=== PATIENT | female | born 2000 | race Caucasian/White ===

== ENCOUNTER 2018-10-22 14:22 | Inpatient (IN) | payer BC ==
[~2018-10-22] VITALS: Ht 152.4 cm; Wt 48.1 kg
[2018-10-22 14:22] VITALS: BP_SYST 120
--- NOTE | 2018-10-22 14:22 | NUR ---
BROUGHT BACK TO BED #1 VIA WHEELCHAIR, PLACED IN BED #1 AND TRIAGED. REPORT GIVEN TO ADRIÁN
--- NOTE | 2018-10-22 14:35 | NUR ---
LJ MOURA examining patient.
--- NOTE | 2018-10-22 14:38 | NUR ---
PATIENT CAME IN COMPLAINING OF VOMITING FOR ABOUT A WEEK NOW. PATIENT WENT TO PCP AND TOLD THEM TO COME TO ER. PATIENT STATES SHE CANT KEEP ANY FOOD OR LIQUIDS DOWN AND HASNT REALLY ATE IN A WEEK. PATIENT COMPLAINING OF UPPER ABD PAIN /10. PATIENT STATES SHE FEELS WEAK AND LIKE SHE IS ABOUT TO FAINT. PATIENT IS NOT COMPLAINING OF DIARRHEA OR SOB. PATIENT ALERT AND ORIENTED X4.
[2018-10-22] MEDS ORDERED: NACL 0.9% 1,000 ML IV ONE ×2 (14:39→15:45)
[2018-10-22] MEDS ORDERED: ONDANSETRON HCL 4 MG/2 ML VIAL IVP ONE (14:45)
[2018-10-22] MEDS ORDERED: KETOROLAC TROMETHAMINE 30 MG VIAL IVP ONE (14:45)
--- NOTE | 2018-10-22 15:05 | NUR ---
PATIENT GETTING ULTRA SOUND IN BED.
[2018-10-22 15:08] LABS: BASOPHILS # (AUTO) 0.1 K/uL (0.0-0.2); BASOPHILS % (AUTO) 0.3 % (0.0-2.0); EOSINOPHILS % (AUTO) 0.2 % (0.0-4.0); HEMATOCRIT 52.9 % (36-48); HEMOGLOBIN 18.6 g/dL (12.0-16.0); LYMPHOCYTES # (AUTO) 2.5 K/uL (1.0-5.5); LYMPHOCYTES % (AUTO) 12.4 % (20.5-51.5); MEAN CORPUSCULAR HEMOGLOBIN 30 pg (27-31); MEAN CORPUSCULAR HGB CONC 35 % (32-36); MEAN CORPUSCULAR VOLUME 84 fL (79.0-98.0); MONOCYTES # (AUTO) 1.8 K/uL (0.0-1.0); MONOCYTES % (AUTO) 8.9 % (1.7-9.3); NEUTROPHILS # (AUTO) 15.8 K/uL (1.8-7.7); PLATELET COUNT (AUTO) 382 K/uL (130-430); RED BLOOD CELL COUNT(AUTO) 6.29 MIL/uL (4.2-6.2); RED CELL DISTRIBUTION WIDTH 13.5 % (9.0-15.0); WHITE BLOOD COUNT (AUTO) 20.2 K/uL (4.5-11.0)
[2018-10-22 15:26] LABS: CALCIUM 10.2 mg/dL (8.4-11.0); CREATININE 0.81 mg/dL (0.55-1.30)
[2018-10-22 15:31] LABS: ALBUMIN 4.5 g/dL (3.4-4.8); TOTAL BILIRUBIN 2.3 mg/dL (0.0-1.0)
[2018-10-22 15:34] LABS: POTASSIUM 2.6 mmol/L (3.5-5.1)
--- NOTE | 2018-10-22 15:37 | NUR ---
PATIENT ASKED IF SHE CAN URINATE NOW FOR US SINCE SHE WASNT ABLE TO EARLIER. PATIENT STATED SHE HASNT URINATED IN COUPLE OF DAYS. POWDER CORE TESTER MARTELL AWARE.
[2018-10-22 15:39] LABS: NEUTROPHILS % (AUTO) 78.2 % (40.0-70.0)
[2018-10-22] MEDS ORDERED: cefTRIAXone 1 GM in D5W 50 ML IV ONE (15:45)
[2018-10-22] MEDS ORDERED: cefTRIAXone 1 GM VIAL ONE (16:11)
[2018-10-22 16:32] LABS: BILIRUBIN,URINE 1+ (NEGATIVE); CLARITY/URINE SL CLOUDY (CLEAR); COLOR,URINE YELLOW (YELLOW); GLUCOSE,URINE NEGATIVE (NEGATIVE); KETONES,URINE 3+ (NEGATIVE); LEUKOCYTE ESTERASE ,URINE NEGATIVE (NEGATIVE); NITRITE, URINE NEGATIVE (NEGATIVE); PROTEIN URINE 2+ (NEGATIVE)
[2018-10-22 16:45] LABS: BLOOD, URINE TRACE (NEGATIVE)
[2018-10-22 16:46] LABS: BACTERIA,URINE MODERATE /HPF (None Seen); FINE GRANULAR CASTS,URINE 0-10 /LPF (None Seen); MUCUS,URINE 3+ /LPF (None Seen); RBC,URINE 0-3 /HPF (0-3); URINE AMORPHOUS URATE 2+ /HPF (None Seen)
--- NOTE | 2018-10-22 16:48 | NUR ---
Medication reconciliation completed with information provided by patient. Any prior medication reconciliation on file was reviewed and corrected.
--- NOTE | 2018-10-22 17:28 | NUR ---
Patient will be admitted to care of DR WYLIE. Admitted to MED SURGE unit. Will go to room 109C. Belongings list completed. Summary report printed. Report will be given at bedside.
--- NOTE | 2018-10-22 18:10 | NUR ---
PATIENT LEFT TO ULTRA SOUND VIA WHEEL CHAIR IN STABLE CONDITION.
--- NOTE | 2018-10-22 18:25 | NUR ---
WAITING FOR DR TO CALL BACK WITH ORDERS. DR'S GOING BACK AND FORTH WITH WHO SHOULD ADMIT HER.
--- NOTE | 2018-10-22 18:58 | NUR ---
PATIENT BACK FROM [facility] IN STABLE CONDITION.
--- NOTE | 2018-10-22 19:16 | NUR ---
ENDORSED CARE TO MEET FONSECA.
--- NOTE | 2018-10-22 19:18 | NUR ---
Recieved report from Eulogio DSOUZA for continuation of care. Patient observed sitting in bed in no acute distress. Mother present bedside. Awaiting admission orders at this time.
[2018-10-22] MEDS ORDERED: ONDANSETRON HCL 4 MG/2 ML VIAL IVP PRN (20:00)
--- NOTE | 2018-10-22 20:00 | NUR ---
Patient will be admitted to care of Dr. Yeager. Admitted to telemetry unit. Will go to room 109C. Belongings list completed. Summary report printed. Report will be given at bedside.
[2018-10-22] MEDS: KCL 40mEq in D5/0.45NS 1000 mL 1,000 ML IV SCH (20:12)
--- NOTE | 2018-10-22 20:19 | NUR ---
Transfer to telemetry via ACLS protocol. Licensed nurse present. IV present no signs or symptoms of infiltration.
--- NOTE | 2018-10-22 20:23 | NUR ---
ADMISSION NOTE Received patient from ER via gurney. Patient admitted with diagnosis of Hyperemesis Gravidarum. Patient is awake, alert, oriented X 4. Patient oriented to hospital room, call light, toileting, pain management and safety-teach back done. Patient informed that MEET Arias will be primary nurse and that their room number is 109C. Personal belongings checked and Belongings List documented. Call light within reach.
[2018-10-22 20:35] VITALS: BP_SYST 117
--- NOTE | 2018-10-22 21:08 | NUR ---
PATIENT RESTING COMFORTABLY IN BED, AAOX4. PROVIDED WITH JELLO, CRANBERRY JUICE, AND WATER PER PATIENT REQUEST. PATIENT STATED THAT SHE HASN'T HAD ANYTHING TO EAT FOR DINNER. MOTHER AND FATHER ARE AT THE BEDSIDE. BED IS LOCKED, IN THE LOWEST POSITION, 2X SIDE RAILS UP. PATIENT REFUSES BED ALARM AT THIS TIME. CALL LIGHT IS WITHIN REACH. ENCOURAGED PATIENT TO CALL FOR ASSISTANCE. WILL CONTINUE WITH PLAN OF CARE.
--- NOTE | 2018-10-22 23:30 | NUR ---
Patient is resting comfortably in bed, eyes closed. Breathing even and unlabored with visible chest rise and fall noted. No SOB, no acute distress, no signs of pain or facial grimacing noted. IV site intact, dressing clean and dry, infusing IVF per MD order, see eMAR. Bed is locked, in the lowest position, 2x side rails up, bed alarm is on. Call light is within reach.
--- NOTE | 2018-10-22 23:33 | NUR ---
Consultation Paged Reason for Consultation: Hyperemesis Gravidarum Was consult called: Y Person who was notified: [place] Consulting Physician: Dr. Kwan Application Developer Ordering Physician: Jacob Downey
[2018-10-23] VITALS (7 sets, daily range): BP systolic 104–128
--- NOTE | 2018-10-23 01:40 | NUR ---
Patient resting in bed, eyes closed. No SOB, no acute distress. Visible chest rise and fall noted. No signs of pain or facial grimacing. Call light within reach.
[2018-10-23] MEDS: KCL 40mEq in D5/0.45NS 1000 mL 1,000 ML IV SCH ×3 (02:25→22:28)
--- NOTE | 2018-10-23 02:29 | NUR ---
Patient complaining of nausea. provided patient with zofran PRN per MD order, see eMAR for details.
[2018-10-23] MEDS ORDERED: KCL 40mEq in D5/0.45NS 1000 mL 1,000 ML IV ONE (02:32)
--- NOTE | 2018-10-23 02:55 | NUR ---
Patient resting in bed, easily arousable to voice. Breathing even, unlabored with visible chest rise and fall noted. No SOB, no acute distress. no complaints of pain. Call light within reach. encouraged patient to call for assistance.
--- NOTE | 2018-10-23 04:26 | NUR ---
PATIENT RESTING IN BED, EYES CLOSED. BREATHING EVEN AND UNLABORED. NO SOB, NO ACUTE DISTRESS, NO SIGNS OF PAIN OR FACIAL GRIMACING. VISIBLE CHEST RISE AND FALL NOTED. CALL LIGHT WITHIN REACH. IVF INFUSING AT ORDERED RATE, SEE EMAR FOR DETAILS.
[2018-10-23 05:49] LABS: BASOPHILS % (AUTO) 0.2 % (0.0-2.0); EOSINOPHILS # (AUTO) 0.2 K/uL (0.0-0.4); EOSINOPHILS % (AUTO) 1.6 % (0.0-4.0); HEMATOCRIT 36.9 % (36-48); HEMOGLOBIN 12.9 g/dL (12.0-16.0); LYMPHOCYTES # (AUTO) 3.1 K/uL (1.0-5.5); LYMPHOCYTES % (AUTO) 23.1 % (20.5-51.5); MEAN CORPUSCULAR HEMOGLOBIN 29 pg (27-31); MEAN CORPUSCULAR HGB CONC 35 % (32-36); MEAN CORPUSCULAR VOLUME 84 fL (79.0-98.0); MONOCYTES # (AUTO) 1.2 K/uL (0.0-1.0); MONOCYTES % (AUTO) 9.2 % (1.7-9.3); NEUTROPHILS # (AUTO) 8.8 K/uL (1.8-7.7); NEUTROPHILS % (AUTO) 65.9 % (40.0-70.0); PLATELET COUNT (AUTO) 231 K/uL (130-430); RED BLOOD CELL COUNT(AUTO) 4.38 MIL/uL (4.2-6.2); RED CELL DISTRIBUTION WIDTH 13.4 % (9.0-15.0); WHITE BLOOD COUNT (AUTO) 13.3 K/uL (4.5-11.0)
--- NOTE | 2018-10-23 06:29 | NUR ---
PATIENT RESTING IN BED, EYES CLOSED. BREATHING EVEN AND UNLABORED, VISIBLE CHEST RISE AND FALL NOTED. NO SOB, NO ACUTE DISTRESS, NO COMPLAINTS OF PAIN AT THIS TIME. BED IS LOCKED, IN THE LOWEST POSITION, 2X SIDE RAILS UP, BED ALARM IS ON. IV SITE INTACT, DRESSING CLEAN AND DRY, CURRENTLY INFUSING IVF PER MD ORDER, SEE EMAR. CALL LIGHT IS WITHIN REACH. ENCOURAGED PATIENT TO CALL FOR ASSISTANCE. FALL AND SAFETY PRECAUTIONS MAINTAINED. ALL NEEDS HAVE BEEN MET DURING THIS SHIFT. WILL ENDORSE CARE TO ONCOMING DAYSHIFT NURSE.
[2018-10-23 07:12] LABS: ALBUMIN 2.8 g/dL (3.4-4.8); CALCIUM 8.2 mg/dL (8.4-11.0); CREATININE 0.54 mg/dL (0.55-1.30); POTASSIUM 3.1 mmol/L (3.5-5.1); TOTAL BILIRUBIN 1.5 mg/dL (0.0-1.0)
--- NOTE | 2018-10-23 07:15 | NUR ---
received report at the bedside. patient aaox 4. still sleepy no nausea nor vomitting noted. lungs bilaterally clear. abdomen soft and non distended. bed in low position. call lights within reach. instructed to call for assistance. will continue to monitor patients status. on sinus rthythm 80. no ectopy noted. has iv acces on both rt ac and left ac with iv fluids on Dr1/2Ns w/40kcl at 100cc/hr infusing on well.
--- NOTE | 2018-10-23 09:00 | NUR ---
no due medication at this time.
--- NOTE | 2018-10-23 09:30 | NUR ---
patient stable. no complained of nausea nor vomitting noted.
--- NOTE | 2018-10-23 11:48 | NUR ---
SS NOTE: STUNT DRIVER met with pt at bedside for assessment and DCP. STUNT DRIVER verified and corrected demographic information (2nd emergency contact, Graciela Bryan @ [phone] and PCP: Dr. 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 Pt states she found out in the emergency room that she is between 5-8 weeks from an ultrasound performed in the ED. Pt stated she was "scared to tell mom" about the result and had one of the ED nurse tell the pt's mother instead. Pt states she and her family are concern about the baby. Apparently, she was notified that heart activity of the baby is undetectable, but OB is yet to give her a definitive answer if any. At this time, pt finds her family as supportive and concern of her current situation. Pt was tearful during the interview and concern about the baby. Pt states that her boyfriend (baby's father) is involved and supportive. SS will provide pt with resource prior to d/c and will continue to remain available when needed. Addendum: 10/23/18 at 1631 by Janiya LOCO STUNT DRIVER provided pt with WIC and Assistance resources.
--- NOTE | 2018-10-23 12:30 | NUR ---
tolerating clear liquid diet. assists on adls.
--- NOTE | 2018-10-23 12:54 | NUR ---
hanged a new iv bag D51/2NS + 40 Kcl at 100cc/hr infusing on well.
--- NOTE | 2018-10-23 14:00 | NUR ---
patient asleep. both eyes closed. no sob nor pain noted.
--- NOTE | 2018-10-23 15:00 | NUR ---
discontinue tele to med surgical.
--- NOTE | 2018-10-23 15:56 | NUR ---
mom is at the bedside. resting and watching the tv. no complained made so far.
[2018-10-23] MEDS ORDERED: FAMOTIDINE PF 20 MG/2 ML VIAL IVP ONE (16:00)
--- NOTE | 2018-10-23 16:57 | NUR ---
dad came and wants some update of the status of her daughter.
--- NOTE | 2018-10-23 17:55 | NUR ---
watching tv. resting. no abdominal pain noted.
--- NOTE | 2018-10-23 19:15 | NUR ---
change of shift.pt.present general stable status.family present.iv fluids infusing.no c/o pain,nausea. pt.had requested to shower to page the md.call light/telephone w/in the reach of the pt.
--- NOTE | 2018-10-23 19:19 | NUR ---
endorsed to incoming nurse Haim DSOUZA
--- NOTE | 2018-10-23 20:00 | NUR ---
pt.assessed.v/s assessed;values w/in normal limits.no c/o pain,nausea.i have apprised the pt.that snacks/beverages are available w/in the shift.general status stable.respiratory status stable.call light/telephone w/in the reach of the pt.
--- NOTE | 2018-10-23 20:30 | NUR ---
pt.assisted to the shower.mother has accompanied the pt.inside the room.i have provide the toiletries;soap,lotion;skin,gown, wash clothes;socks.
--- NOTE | 2018-10-23 21:00 | NUR ---
2100p medication administered:pepcid;ivp.i have provided the medication indication of the medication;pt./family. pt.had requested snacks/beverages;i have proved the snacks/beverages. Addendum: 10/24/18 at 0302 by Haim Hamilton RN pt.had return to the room safely.mother accompanied pt from the shower jocy to the bed.
[2018-10-23] MEDS: FAMOTIDINE PF 20 MG/2 ML VIAL IVP SCH (21:06)
--- NOTE | 2018-10-23 22:00 | NUR ---
pt.assessed.pt.presents quiescent affect;calm,viewing tv programming.no c/o pain,nausea.i have changed the iv fluids bag. no requests posted@this hour.general status stable.respiratory status stable.call light/telephone w/in the reach of the pt.family have left the hospital.
--- NOTE | 2018-10-24 | NUR ---
pt.assessed.v/s assessed;values w/in normal, limits.no c./o pain,nausea.no requested posited @this hour. iv fluids access intact;patent;iv fluids infusing.general status stable.respiratory status stable.call light/ telephone w/in thew reach of the pt.
--- NOTE | 2018-10-24 02:00 | NUR ---
pt.assessed.pt.presents quiescent affect;calm,somnolent.iv acces intac;patent.iv fluids infusing.general status stable.respiratory statu stable;unlabored.pt.capable t reposition self.call light/telephone w/in the reach of the pt.
--- NOTE | 2018-10-24 04:00 | NUR ---
pt.assessed.pt.presents quiescent affect;calm somnolent.iv fluids infusing.general status stable.respiratory status stable. pt.capable to reposition self.call light/telephone w/in the reach of the pt.
[2018-10-24 05:57] LABS: BASOPHILS % (AUTO) 0.5 % (0.0-2.0); EOSINOPHILS # (AUTO) 0.3 K/uL (0.0-0.4); EOSINOPHILS % (AUTO) 2.7 % (0.0-4.0); HEMATOCRIT 35.8 % (36-48); HEMOGLOBIN 12.2 g/dL (12.0-16.0); LYMPHOCYTES # (AUTO) 2.3 K/uL (1.0-5.5); LYMPHOCYTES % (AUTO) 22.4 % (20.5-51.5); MEAN CORPUSCULAR HEMOGLOBIN 29 pg (27-31); MEAN CORPUSCULAR HGB CONC 34 % (32-36); MONOCYTES # (AUTO) 0.8 K/uL (0.0-1.0); MONOCYTES % (AUTO) 7.5 % (1.7-9.3); NEUTROPHILS % (AUTO) 66.9 % (40.0-70.0); PLATELET COUNT (AUTO) 186 K/uL (130-430); RED BLOOD CELL COUNT(AUTO) 4.15 MIL/uL (4.2-6.2); RED CELL DISTRIBUTION WIDTH 13.5 % (9.0-15.0); WHITE BLOOD COUNT (AUTO) 10.4 K/uL (4.5-11.0)
--- NOTE | 2018-10-24 06:31 | NUR ---
pt.assessed.,pt.presents quiescent affect;calm,somnolent.iv fluids infusing,general status stable. respiratory status stable.pt.capable to reposition self.call light/telephone w/in the reach of the pt. no family member present.
[2018-10-24 06:46] LABS: ALBUMIN 2.6 g/dL (3.4-4.8); CALCIUM 8.3 mg/dL (8.4-11.0); CREATININE 0.62 mg/dL (0.55-1.30); POTASSIUM 3.8 mmol/L (3.5-5.1); TOTAL BILIRUBIN 0.5 mg/dL (0.0-1.0)
--- NOTE | 2018-10-24 07:15 | NUR ---
received patient in stable condition. no pain nor acute distress noted. has iv access on the left ac #22 with D51/2 NS + 40mew Kcl at 100cc/hr infusing on well. lungs are clear bilaterally. abdomen soft and non distended. bed in low position, locked and alarmed. instructed to call for assistance.
[2018-10-24 07:18] LABS: MEAN CORPUSCULAR VOLUME 86 fL (79.0-98.0)
[2018-10-24] MEDS: ONDANSETRON HCL 4 MG/2 ML VIAL IVP PRN (07:24)
[2018-10-24 08:01] VITALS: BP_SYST 108
--- NOTE | 2018-10-24 09:00 | NUR ---
a new iv bag hanged at this time. made comfortable.
--- NOTE | 2018-10-24 09:05 | NUR ---
PATIENT DUE MEDICATION GIVEN AT THIS TIME.
[2018-10-24] MEDS: FAMOTIDINE PF 20 MG/2 ML VIAL IVP SCH ×2 (09:09→20:49)
[2018-10-24] MEDS: KCL 40mEq in D5/0.45NS 1000 mL 1,000 ML IV SCH ×2 (09:10→20:49)
--- NOTE | 2018-10-24 09:15 | NUR ---
QUITE AND RESTING BUT STILL EATING FOOD LITTLE BY LITTLE. NO NAUSEA NOR VOMITTING NOTED.
--- NOTE | 2018-10-24 10:50 | NUR ---
WENT TO THE BATHROOM AND VOIDED.
[2018-10-24 11:39] VITALS: BP_SYST 108
--- NOTE | 2018-10-24 12:20 | NUR ---
eating lunch at this time and little by little on the food tray
--- NOTE | 2018-10-24 12:55 | NUR ---
patricio operations vice president came to see and education given to the patient.
--- NOTE | 2018-10-24 13:18 | NUR ---
Dietitian Recommendations * Recommend continuing regular, soft diet LP, RD Please refer to Nutrition Assessment for details.
--- NOTE | 2018-10-24 14:43 | NUR ---
asleep at this time. stable. no pain nor nausea nor acute distress noted.
--- NOTE | 2018-10-24 14:57 | NUR ---
dr osullivan called regarding the status of the patient. said will come to possible d/c home today.
[2018-10-24 15:31] VITALS: BP_SYST 118
--- NOTE | 2018-10-24 16:32 | NUR ---
Dr Toy James came and evaluate the patient.he wants to talked to Dr Ezekiel geller md.
--- NOTE | 2018-10-24 16:51 | NUR ---
Dr Falcon called but Dr Preston fuel conversion technician. awaiting to call back.
--- NOTE | 2018-10-24 18:05 | NUR ---
dr Preston called back for Dr Falcon. said its okay, if Dr osullivan wants the patient to stay one more nite.
--- NOTE | 2018-10-24 18:13 | NUR ---
informed the family and the patient that she needs to stay for one more nite. dr osullivan ordered to have ultrasound of abdomen. lipid panel and hold discharge tonite.
--- NOTE | 2018-10-24 19:05 | NUR ---
OPENING NOTES RECEIVED PATIENT IN BED FAMILY AT BEDSIDE. BREATHING UNLABORED ON ROOM AIR. DENIES PAIN AT THIS TIME. IVF INFUSING ORDERED. BED IN LOWEST LOCKED POSITION. CALL LIGHT WITH IN REACH.
--- NOTE | 2018-10-24 19:10 | NUR ---
endorsed to incoming nurse Eveline DSOUZA.
--- NOTE | 2018-10-24 20:30 | NUR ---
SHOWER PATIENT HAD SHOWERED AND TOLERATED. ALL BED LINENS CHANGED.
[2018-10-24 20:43] VITALS: BP_SYST 118
--- NOTE | 2018-10-24 20:49 | NUR ---
MEDS PATIENT DUE MEDICATION GIVEN. IVF INFUSING WITH IV LINE INTACT.
--- NOTE | 2018-10-24 23:55 | NUR ---
MD DR. GOMEZ CALLED AND GAVE ORDERS FOR LABS IN AM. NOTED AND CARRIED OUT.
[2018-10-25 00:13] VITALS: BP_SYST 113
--- NOTE | 2018-10-25 00:35 | NUR ---
ROUNDS PATIENT AWAKE IN BED. NO C/O ANY DISCOMFORT AT THIS TIME. VITAL SIGNS STABLE. PATIENT REMINDED OF BEING NPO FOR ABDOMINAL ULTRASOUND PATIENT AGREED.
--- NOTE | 2018-10-25 03:00 | NUR ---
ROUNDS PATIENT RESTING IN BED. NO DISTRESS NOTED. IVF INFUSING.
[2018-10-25] MEDS: KCL 40mEq in D5/0.45NS 1000 mL 1,000 ML IV SCH (06:17)
[2018-10-25 06:26] LABS: BASOPHILS % (AUTO) 0.3 % (0.0-2.0); EOSINOPHILS # (AUTO) 0.1 K/uL (0.0-0.4); EOSINOPHILS % (AUTO) 1.6 % (0.0-4.0); HEMATOCRIT 36.6 % (36-48); HEMOGLOBIN 12.3 g/dL (12.0-16.0); LYMPHOCYTES # (AUTO) 1.7 K/uL (1.0-5.5); LYMPHOCYTES % (AUTO) 24.1 % (20.5-51.5); MEAN CORPUSCULAR HEMOGLOBIN 29 pg (27-31); MEAN CORPUSCULAR HGB CONC 34 % (32-36); MEAN CORPUSCULAR VOLUME 87 fL (79.0-98.0); MONOCYTES # (AUTO) 0.6 K/uL (0.0-1.0); MONOCYTES % (AUTO) 8.5 % (1.7-9.3); NEUTROPHILS # (AUTO) 4.6 K/uL (1.8-7.7); NEUTROPHILS % (AUTO) 65.5 % (40.0-70.0); PLATELET COUNT (AUTO) 167 K/uL (130-430); RED BLOOD CELL COUNT(AUTO) 4.22 MIL/uL (4.2-6.2); RED CELL DISTRIBUTION WIDTH 13.4 % (9.0-15.0)
--- NOTE | 2018-10-25 06:32 | NUR ---
CLOSING NOTES PATIENT RESTING IN BED. BREATHING UNLABORED. IVF INFUSING ORDERED. NO C/O OF PAIN OR NAUSEA AT THIS TIME. PATIENT NEEDS ATTENDED. BED IN LOWEST LOCKED POSITION. CALL LIGHT WITH IN REACH.
[2018-10-25 06:42] LABS: ALBUMIN 2.7 g/dL (3.4-4.8); CALCIUM 8.8 mg/dL (8.4-11.0); CREATININE 0.51 mg/dL (0.55-1.30); TOTAL BILIRUBIN 0.4 mg/dL (0.0-1.0)
[2018-10-25 07:45] VITALS: BP_SYST 109
--- NOTE | 2018-10-25 07:45 | NUR ---
INITIAL ROUNDS Received pt AAOx4, no s/s resp distress, no c/o pain or discomfort, no c/o nausea or vomiting at this time. Plan of care for the day reviewed with pt-pt verbalized her understanding. IVF infusing well to LAC at ordered rate with no s/s infiltration to site. Pt CHAIRMAN & CHIEF EXECUTIVE OFFICER for test this morning. Pain management, skin and safety discussed-teach back done. Call light within reach.
[2018-10-25] MEDS: FAMOTIDINE PF 20 MG/2 ML VIAL IVP SCH (08:52)
[2018-10-25] MEDS: ONDANSETRON HCL 4 MG/2 ML VIAL IVP PRN (08:56)
--- NOTE | 2018-10-25 08:58 | NUR ---
NAUSEA Pt c/o feeling nauseated-pt given Zofran as ordered. Light turned down low and door closed to promote rest.
--- NOTE | 2018-10-25 10:02 | NUR ---
ROUNDS Pt with no further c/o nausea, no c/o pain or discomfort. Pt remains NPO-awaiting Abd US. Needs met, call light within reach.
--- NOTE | 2018-10-25 11:27 | NUR ---
Neighborhood Aide: PRINTING SPECIALIST met with pt. bedside. Pt. was pleasant and easily participated in this interview. Pt. stated she was feeling much better and will probably be discharged today. Pt. denied having any issue with Anorexia. Pt. stated she still doesn't know if there is a hearbeat. It was explained to her that it may be too early to detect a heartbeat. Pt stated she was probably not going to keep the baby. She stated she [facility] information and resources about an . PRINTING SPECIALIST gave pt. resources for [facility] as options. Pt. did not have any further questions. PRINTING SPECIALIST will remain available as needed.
[2018-10-25 12:16] VITALS: BP_SYST 106
[2018-10-25 13:26] VITALS: BP_SYST 108
[2018-10-25 15:02] VITALS: BP_SYST 108
--- NOTE | 2018-10-25 18:07 | NUR ---
KALLIE TO AL HOME [facility] kallie to D/C home per Dr. [id number] with GI clinic in 4 weeks.
--- NOTE | 2018-10-25 19:45 | NUR ---
PATIENT DISCHARGED Patient and patient's father given medication reconciliation form and D/C instructions. Exit Care provided explained and provided. Patient & patient's father verbalized their understanding. MD discussed with patient the results and treatment provided. Ambulatory with steady gait for discharge to home. Patient in stable condition, ID band removed. IV catheter removed, intact and dressing applied, no active bleeding. Patient educated on pain management. All belongings sent with patient.Patient left floor ambulatory to private vehicle in no distress.
[2018-10-25 21:06] LABS: CHLAMYDIA TRACHOMATIS NAA Negative (Negative); NEISSERIA GONORRHOEAE NAA Negative (Negative)
== END 2018-10-25 19:45 | disposition home or self-care (01) | DRG 831 ==
LOC: SED 14:22 → SMU 17:23 → STU 20:42 → SMU 21:14 → STU 21:36 → SMU 10-23 13:39
PROVIDERS: ADMIT Internal Medicine Hospice and Palliative Medicine; ATTEND Obstetrics & Gynecology
DX: O21.1 Hyperemesis gravidarum with metabolic disturbance (principal); K85.90 Acute pancreatitis without necrosis or infection, unspecified; O23.41 Unspecified infection of urinary tract in pregnancy, first trimester; A09 Infectious gastroenteritis and colitis, unspecified; O26.891 Other specified pregnancy related conditions, first trimester; O99.611 Diseases of the digestive system complicating pregnancy, first trimester; E86.0 Dehydration; O99.281 Endocrine, nutritional and metabolic diseases complicating pregnancy, first trimester; Z3A.01 Less than 8 weeks gestation of pregnancy
CPT/HCPCS: 36415; 76700-TC; 76801; 76817; 80053; 80061; 81000-TC; 83605; 83690-TC; 84702-TC; 85025; 87040-TC; 87086; 87491; 87591; 96361; 96365; 96376; 99285; G0378; J0696; J1885; J2405; J3490; J7030

== ENCOUNTER 2019-06-07 21:27 | Emergency (ER) | payer BC ==
[~2019-06-07] VITALS: Ht 152.4 cm; Wt 50.8 kg
[2019-06-07 22:13] VITALS: BP_SYST 121
[2019-06-07 22:51] LABS: BASOPHILS % (AUTO) 0.2 % (0.0-2.0); HEMOGLOBIN 14.1 g/dL (12.0-16.0); LYMPHOCYTES # (AUTO) 0.9 K/uL (1.0-5.5); LYMPHOCYTES % (AUTO) 5.2 % (20.5-51.5); MEAN CORPUSCULAR HEMOGLOBIN 29 pg (27-31); MEAN CORPUSCULAR HGB CONC 34 % (32-36); MEAN CORPUSCULAR VOLUME 86 fL (79.0-98.0); MONOCYTES # (AUTO) 0.3 K/uL (0.0-1.0); NEUTROPHILS # (AUTO) 15.6 K/uL (1.8-7.7); NEUTROPHILS % (AUTO) 92.6 % (40.0-70.0); PLATELET COUNT (AUTO) 257 K/uL (130-430); RED BLOOD CELL COUNT(AUTO) 4.88 MIL/uL (4.2-6.2); RED CELL DISTRIBUTION WIDTH 13.6 % (9.0-15.0); WHITE BLOOD COUNT (AUTO) 16.8 K/uL (4.5-11.0)
[2019-06-07 23:01] LABS: CALCIUM 9.7 mg/dL (8.4-11.0); CREATININE 0.85 mg/dL (0.55-1.30); POTASSIUM 4.1 mmol/L (3.5-5.1)
[2019-06-07 23:21] LABS: ALBUMIN 4.7 g/dL (3.4-4.8); TOTAL BILIRUBIN 1.7 mg/dL (0.0-1.0)
[2019-06-07] MEDS ORDERED: NACL 0.9% 1,000 ML IV ONE (23:30)
[2019-06-07] MEDS ORDERED: ONDANSETRON HCL 4 MG/2 ML VIAL IVP ONE (23:30)
[2019-06-08] MEDS ORDERED: FAMOTIDINE PF 20 MG/2 ML VIAL IVP ONE
[2019-06-08 01:23] LABS: BILIRUBIN,URINE 1+ (NEGATIVE); BLOOD, URINE NEGATIVE (NEGATIVE); CLARITY/URINE CLEAR (CLEAR); COLOR,URINE YELLOW (YELLOW); GLUCOSE,URINE NEGATIVE (NEGATIVE); KETONES,URINE 3+ (NEGATIVE); LEUKOCYTE ESTERASE ,URINE NEGATIVE (NEGATIVE); NITRITE, URINE NEGATIVE (NEGATIVE); PROTEIN URINE 2+ (NEGATIVE); UROBILINOGEN,URINE 0.2 (0.2-1.0)
[2019-06-08 01:42] LABS: BACTERIA,URINE FEW /HPF (None Seen); RBC,URINE 0-3 /HPF (0-3); WBC,URINE 0-3 /HPF (0-3)
[2019-06-08 03:42] VITALS: BP_SYST 121
== END 2019-06-08 03:42 | disposition home or self-care (01) ==
LOC: SED 21:27
DX: R10.13 Epigastric pain (principal); R11.2 Nausea with vomiting, unspecified; R51 Headache
CPT/HCPCS: 36415; 80053; 81000; 81025; 83605; 83690; 84702; 85025; 96361; 96374; 96375; 99284; J2405; J3490; J7030

== ENCOUNTER 2019-06-09 13:43 | Emergency (ER) | payer BC ==
[~2019-06-09] VITALS: Ht 152.4 cm; Wt 50.8 kg
[2019-06-09 14:39] VITALS: BP_SYST 135
--- NOTE | 2019-06-09 14:45 | NUR ---
Patient triaged and placed in waiting room. VSS and patient appears in no acute distress at this time. Accompanied by mother, awaiting available bed, and MD notified of need for MSE.
[2019-06-09 15:37] LABS: BASOPHILS % (AUTO) 0.3 % (0.0-2.0); LYMPHOCYTES # (AUTO) 1.1 K/uL (1.0-5.5); LYMPHOCYTES % (AUTO) 10.3 % (20.5-51.5); MEAN CORPUSCULAR HEMOGLOBIN 29 pg (27-31); MEAN CORPUSCULAR HGB CONC 34 % (32-36); MEAN CORPUSCULAR VOLUME 86 fL (79.0-98.0); MONOCYTES # (AUTO) 0.4 K/uL (0.0-1.0); NEUTROPHILS # (AUTO) 9.1 K/uL (1.8-7.7); NEUTROPHILS % (AUTO) 85.4 % (40.0-70.0); PLATELET COUNT (AUTO) 219 K/uL (130-430); RED BLOOD CELL COUNT(AUTO) 4.79 MIL/uL (4.2-6.2); WHITE BLOOD COUNT (AUTO) 10.6 K/uL (4.5-11.0)
[2019-06-09 15:44] LABS: ANION GAP 15 (5-15); CALCIUM 9.3 mg/dL (8.4-11.0); CHLORIDE 105 mmol/L (98-107); CREATININE 0.72 mg/dL (0.55-1.30); GFR AFRICAN AMERICAN 133 mL/min (>90); GLUCOSE 106 mg/dL (70-99); POTASSIUM 3.5 mmol/L (3.5-5.1); SODIUM SERUM 140 mmol/L (136-145); UREA NITROGEN, BLOOD 11 mg/dL (8-21)
[2019-06-09 15:58] LABS: ALANINE AMINOTRANSFERASE 28 U/L (12-78); ALBUMIN 4.5 g/dL (3.4-4.8); ASPARTATE AMINOTRANSFERASE 17 U/L (10-37); TOTAL BILIRUBIN 1.4 mg/dL (0.0-1.0)
[2019-06-09 15:59] LABS: ACETAMINOPHEN < 1 ug/mL (1-30); ALCOHOL, BLOOD < 3 mg/dL (<10)
[2019-06-09 17:26] LABS: HCG,QUANTITATIVE 0 mIU/ML (0-6); LIPASE 182 U/L (73-393)
--- NOTE | 2019-06-09 18:46 | NUR ---
Patient to ER bed 05 to gown for evaluation. Side rails up.
--- NOTE | 2019-06-09 18:57 | NUR ---
Patient brought in with mother complaining of epigastric pain with nausea and vomiting since this morning. PAtient was seen 2 days ago and given Zofran Rx with no relief today. Patient also complaining of headache and lightsensitivity. HCG Quant was negative. Denies any fevers or diarrhea. No other complaints/injuries per patient or as noted.
[2019-06-09] MEDS ORDERED: NACL 0.9% 1,000 ML IV ONE (19:05)
--- NOTE | 2019-06-09 19:09 | NUR ---
ER at bedside examining patient.
[2019-06-09] MEDS ORDERED: DIPHENHYDRAMINE INJ 50 MG/ML VIAL IVP ONE (19:15)
[2019-06-09] MEDS ORDERED: PROCHLORPERAZINE EDISYLATE 10 MG/2 ML VIAL IVP ONE (19:15)
[2019-06-09] MEDS ORDERED: HALOPERIDOL LACTATE 5 MG/ML VIAL IVP ONE (19:15)
--- NOTE | 2019-06-09 19:37 | NUR ---
Patient placed on personnel monitor.
[2019-06-09 19:54] LABS: BARBITURATE, URINE NEGATIVE (NEG <=200); BENZODIAZEPINE, URINE NEGATIVE (NEG <=150); COCAINE, URINE NEGATIVE (NEG <=150); METHAMPHETAMINES SCREEN,URINE NEGATIVE (NEG <=500); URINE AMPHETAMINE NEGATIVE (NEG <=500); URINE METHADONE NEGATIVE (NEG <=200)
[2019-06-09 19:55] LABS: CANNABINOID, URINE POSITIVE (NEG <=50); OPIATE, URINE NEGATIVE (NEG <=100); PHENCYCLIDINE SCREEN,URINE NEGATIVE (NEG <=25); UR TRICYCLIC ANTIDEPRESSANTS NEGATIVE (NEG <=300); URINE OXYCODONE SCREEN NEGATIVE (NEG <=100); URINE PROPOXYPHENE SCREEN NEGATIVE (NEG <=300)
--- NOTE | 2019-06-09 20:05 | NUR ---
Medicated per MD orders. IVF infusing with no s/s of infiltration at this time. Will cont to monitor
--- NOTE | 2019-06-09 20:18 | NUR ---
ultrasound at bedside
--- NOTE | 2019-06-09 20:45 | NUR ---
ER Dr. Gore at bedside examining patient.
--- NOTE | 2019-06-09 22:55 | NUR ---
Patient given written and verbal discharge instructions and verbalizes understanding. ER MD discussed with patient the results and treatment provided. Patient in stable condition. ID arm band removed. IV catheter removed intact and dressing applied, no active bleeding. Rx of Reglan and Benadryl given. Patient educated on pain management and to follow up with PMD. Pain Scale 3/10. Opportunity for questions provided and answered. Medication side effect fact sheet provided.
[2019-06-09 22:56] VITALS: BP_SYST 129
== END 2019-06-09 22:56 | disposition home or self-care (01) ==
LOC: SED 13:43
DX: R11.10 Vomiting, unspecified (principal)
CPT/HCPCS: 36415; 76700; 80053; 80307; 83690; 84702; 85025; 93005; 96374; 96375; 99285; G0480; G0481; G0482; J0780; J1200; J1630; J7030